=== PATIENT | male | born 1990 | race Two or more races ===

== ENCOUNTER 2024-09-05 23:16 | Emergency (ER) | payer MEDICAID, SELFPAY ==
[2024-09-05 23:16] VITALS: BMI 35.2
[2024-09-05 23:23] VITALS: BP 137/87; PULSE 91; RESP 19; TEMP 37.1; O2SAT 96; BMI 35.5
--- NOTE | 2024-09-05 23:25 | XR_ITS ---
Examination: CT lumbar spine, without contrast. 2-D sagittal reconstructions. 2-D coronal reconstructions. 3-D reconstructions. Date and time of exam:September 06, 2024 0057 hours INDICATIONS: Low back pain radiating to the legs beginning today CTDI: vol (mGy):28 DLP: (mGycm):771 Technique: Multiple 1.25 mm axial sections of the lumbar spine without intravenous contrast have been obtained. 2-D sagittal and coronal reconstructions have been obtained. 3-D reconstructions have been obtained. Low dose protocols were performed. One or more of the following dose reduction techniques were used; automated exposure control, adjustment of the mA and/or KV according to patient size, use of iterative reconstruction technique. Findings: Adequate alignment lumbar vertebral bodies on lateral view No lumbar vertebral body compression fracture No significant lumbar disc No spondylolisthesis Lumbar pedicles laminae transverse and posterior spinous processes are intact L5-S1 4 mm central lumbar disc bulge contiguous with the S1 nerve roots More cephalad levels unremarkable IMPRESSION: No lumbar fracture L5-S1 4 mm central lumbar disc bulge contiguous with the right and left S1 nerve roots, consider elective MRI lumbar spine without contrast follow-up
--- NOTE | 2024-09-05 23:26 | PD.EDRME ---
Rapid Medical Screening Exam RME Arrival date/time: 09/05/24 23:16 33 yo m present to ED for c/o of back pain tonight I have greeted and performed a focused initial assessment of this patient. A comprehensive ED assessment and evaluation of the patient, analysis of all test results, and completion of the medical decision making process will be conducted by additional ED providers. Chief Complaint: Back Pain/Injury Vital signs: Vital Signs Temperature 98.7 F 09/05/24 23:23 Pulse Rate 91 09/05/24 23:23 Respiratory Rate 19 09/05/24 23:23 Blood Pressure 137/87 H 09/05/24 23:23 Pulse Oximetry (%) 96 09/05/24 23:23 Oxygen Delivery Method Room Air 09/05/24 23:23
[2024-09-06 00:45] LABS: Collection Type, Urine Voided; RBC,Urine 0 /hpf (0-3); Squamous Epithelial Cell,Urine 0 /hpf (0-5)
[2024-09-06 00:56] LABS: Bilirubin,Urine Negative (Negative); Blood,Urine Negative (Negative); Clarity,Urine Clear (Clear/Hazy); Color,Urine Lt-Yellow (Lt Yel-Yel); Glucose, Urine Negative (Negative); Ketones,Urine Negative (Negative); Leukocyte Esterase,Urine Negative (Negative); Nitrite,Urine Negative (Negative); Protein,Urine Negative (Neg - Trace); Specific Gravity,Urine 1.018 (1.001-1.035); Urobilinogen,Urine Negative mg/dL (0.0-1.0); WBC,Urine < 1 /hpf (0-5)
[2024-09-06] MEDS: CYCLObenzaPRINE 5 MG TABLET PO (01:21)
[2024-09-06] MEDS: HYDROcodone/APAP 5/325 TABLET 1 TAB PO (01:21)
[2024-09-06] MEDS: KETOROLAC INJ 60 MG/2 ML VIAL 30 MG IM (01:22)
--- NOTE | 2024-09-06 01:53 | PRELIM_ITS ---
CT scan of the lumbar spine without intravenous contrast (axial sections with sagittal and coronal reformats). September 06, 2024 at 0057 hours Clinical History: Back pain, worsen today. Comparison: None. Findings: There is no fracture, traumatic subluxation or other acute osseous abnormality of the lumbar spine. There is mild disc space narrowing at L5-S1. There is no significant foraminal or spinal canal stenosis. The paraspinous soft tissues are unremarkable Impression: No acute osseous abnormality of the lumbar spine. Mild disc space narrowing L5-S1. Report Electronically Signed By: Vance Palacio 09/06/2024 1:52:32 AM [EST]
--- NOTE | 2024-09-06 02:49 | EDNOTE_ITS ---
ED Back Injury Pain RME/HPI General Chief Complaint: Back Pain/Injury Stated Complaint: LOWER BACK PAIN Time Seen by Provider: 09/06/24 00:00 Arrival date/time: 09/05/24 23:16 33 year old male present to emergency room with c/o of low back pain tonight after lifting patient child. Denies new trauma No fevers No unexplained weight loss of night sweats No recent surgeries or recurrent bacterial infections No IVDU Patient is not immunocompromised Denies any new focal neurological deficits or new motor weakness Denies bowel or bladder incontinence or saddle anesthesia LOCATION: diffuse low back SEVERITY: Symptoms are described as being severe with limitations on activities of daily living QUALITY: Symptoms are described as being dull or achy CONTEXT: The patient is unable to identify any inciting events. DURATION/TIMING: The symptoms started approximately one day ago and have been constant this then. ASSOCIATED SYMPTOMS: The patient is unable to identify any other associated symptoms. MODIFYING FACTORS: The patient is unable to identify any alleviating or aggravating symptoms. PERTINENT ROS: no fevers, no IVDU, denies any ripping or tearing sensations, no associated abdominal pain, no focal neurological deficits and denies any saddle anesthesia, and no bowel or bladder incontinence REVIEW OF SYSTEMS: See History of Present Illness - with the exception of those mentioned in the history of present illness, all other systems reviewed and reported as negative GENERAL: In general the patient is awake, interactive, in an emergency department gurney. HEAD/EYES/EARS/NOSE/THROAT: normo-cephalic, atraumatic, mucus membranes are moist, anicteric, palpebral conjunctiva is pink, trachea is midline. CARDIOVASCULAR: regular rate and regular rhythm, no murmurs, heart sounds are not distant, strong pulses in all four extremities that are equal and symmetric bilateral upper and lower extremities, normal capillary refill. CHEST/PULMONARY: normal chest rise and fall, good air movement, clear to auscultation bilaterally, normal inspiratory to expiratory ratios without evidence of respiratory distress. NECK: No midline/Paraspinal tenderness, no step off ROM/Strenght intact No Kernig and bruzinski sign. No trauma ABDOMEN: soft, not tender, no masses appreciated BACK: lower paraspinal tenderness, midline tenderness, normal range of motion without pain. NEUROLOGICAL: cranio-facial features are symmetric, moves all four extremities equally without obvious limitations or weakness. EXTREMITY: no tenderness to palpation over the long bones or large joints of the bilateral upper and lower extremities, no joint swelling, no joint erythema, no signs of trauma, no unilateral leg swelling and no peripheral edema. SKIN: warm, dry, well-perfused, no jaundice, no rash, no telangiectasias or petechia. PSYCH: calm, cooperative, no evidence of psychosis or agitation RME / HPI RME / HPI Narrative: 09/05/24 23:16 33 yo m present to ED for c/o of back pain tonight I have greeted and performed a focused initial assessment of this patient. A comprehensive ED assessment and evaluation of the patient, analysis of all test results, and completion of the medical decision making process will be conducted by additional ED providers. Related Data Previous Rx's ?Medication ?Instructions ?Recorded AMOXICILLIN/POT CLAV (AUGMENTIN) 1 tab PO BID #14 tabs 06/20/13 cyclobenzaprine 5 mg tablet 5 mg PO TID PRN muscle spa sm #30 09/06/24 tabs lidocaine 5 % topical patch 1 patch topical QDAY #15 e a 09/06/24 naproxen 500 mg tablet 500 mg PO BID PRN pain #30 t abs 09/06/24 Allergies Allergy/AdvReac Type Severity Reaction Status Date / Time NKA* Allergy Uncoded 09/05/24 23:18 Course Course Course Narrative: Patient is admitted to the Emergency Department and evaluated. Patient appears well, is non-toxic and well hydrated. Patient appears to have an uncomplicated lumbar cervical strain. Pt. has no neurological deficits. No bowel or bladder dysfunction. Denies numbness in saddle region. Normal gait. No signs of cauda equina. Patient has no malignancy or other comorbidities. No signs of epidural abscess. No abdominal pain or pulsatile mass and has good peripheral pulses. I do not suspect AAA. Patient is given supportive home care instructions for rest, ice, use of NSAIDS, RX meds if indicated. Patient instructed to return to ER for any symptoms that are concerning to them. Quality Measures none Orders Category Date Time Status CT lumbar spine wo con Stat Exams 09/05/24 23:25 Taken UA [Urinalysis] Stat Lab 09/06/24 00:30 Completed CYCLObenzaPRINE [Flexeril] Med 09/05/24 23:25 Discontinued 5 mg PO X1 ONE HYDROcodone*/APAP 5/325 [[place] 5/325] Med 09/05/24 23:25 Discontinued 1 tab PO X1 ONE Ketorolac Inj [Toradol Inj] Med 09/05/24 23:25 Discontinued 30 mg IM X1 ONE Vital Signs Vital signs: Vital Signs Temperature 98.7 F 09/05/24 23:23 Pulse Rate 91 09/05/24 23:23 Respiratory Rate 19 09/05/24 23:23 Blood Pressure 137/87 H 09/05/24 23:23 Pulse Oximetry (%) 96 09/05/24 23:23 Oxygen Delivery Method Room Air 09/05/24 23:23 Back Pain / Injury Patient data External records reviewed:: [facility] previous records Clinical information provided by:: patient Social determinants that could affect healthcare access:: none Patient has the following chronic illnesses:: hx of back pain How is presenting disease/condition affected by chronic disease/condition?: exacerbated by Evaluation data The following diagnostics were reviewed and interpreted by me:: lab results and radiology exam(s) Lab and/or radiology exams considered but not ordered:: n/a Interpretation Summary: ct lumbar: no acute findings urine no infection Medications / Prescriptions Medications or Prescriptions considered but not ordered:: n/a Medication administrations:: Medication Administration History Discontinued Medications Hydrocodone Bitart/Acetaminophen (Hydrocodone/Apap 5/325 Tablet) 1 tab PO X1 ONE Stop: 09/05/24 23:26 Last Admin: 09/06/24 01:21 Dose: 1 tab Documented By: SULLY Cyclobenzaprine HCl (Cyclobenzaprine 5 Mg Tablet) 5 mg PO X1 ONE Stop: 09/05/24 23:26 Last Admin: 09/06/24 01:21 Dose: 5 mg Documented By: SULLY Ketorolac Tromethamine (Ketorolac Inj 60 Mg/2 Ml Vial) 30 mg IM X1 ONE Stop: 09/05/24 23:26 Last Admin: 09/06/24 01:22 Dose: 30 mg Documented By: SULLY as stated above Consultations Consultation(s) initiated? (list below): No Diagnosis Most likely diagnosis given after review of the tests above:: back strain/spasm Admission Indicated Admission indicated?: not indicated Admission Request Was there a request for admission?: No Disposition Plan Disposition Plan: Discharge Discharge Attestation Discharge Attestation: The patient and all family members were given an opportunity to ask questions and understood the discharge instructions. Discharge instructions specifically effects, indications for sooner follow up or return to the emergency department, and the expected course of current diagnosis. Patient condition: Stable Discharge Plan Plan Patient Disposition: HOME (Self Care) Prescriptions/Referrals Prescriptions/Med Rec: New cyclobenzaprine 5 mg tablet 5 mg PO TID PRN (Reason: muscle spasm) Qty: 30 0RF naproxen 500 mg tablet 500 mg PO BID PRN (Reason: pain) Qty: 30 0RF lidocaine 5 % adhesive patch,medicated 1 patch topical QDAY Qty: 15 0RF Rx Instructions: leave on most painful area for up to 12 hrs No Action AMOXICILLIN/POT CLAV (AUGMENTIN) 875 MG tablet 1 tab PO BID Qty: 14 0RF Referrals: No Primary/Family,Physician [Primary Care Provider] - In 1 week Problem List Clinical Impression: Strain of lumbar region Patient/Caregiver Discharge Instructions Education Materials: ED Back Sprain/Strain Print Language: [place] Stand Alone Forms: [employer] Award Info., Patient Portal Info Letter
[2024-09-06] MEDS: predniSONE 20 MG TABLET 60 MG PO (03:57)
[2024-09-06 04:00] VITALS: BP 132/65; PULSE 65; RESP 19; TEMP 36.7; O2SAT 99
== END 2024-09-06 04:04 | disposition home or self-care (01) ==
PROVIDERS: Physician Assistant; Emergency Provider Emergency Medicine
DX: S39.012A Strain of muscle, fascia and tendon of lower back, initial encounter (principal); X50.0XXA Overexertion from strenuous movement or load, initial encounter; Y93.F2 Activity, caregiving, lifting
CPT/HCPCS: 72131; 81001; 96372; 99284; J1885; J7512; A9270